=== PATIENT | female | born 2000 | race Caucasian/White ===

== ENCOUNTER 2018-01-04 01:37 | Emergency (ER) | payer MEDICAID ==
[~2018-01-04] VITALS: Ht 165.1 cm; Wt 88.9 kg
[2018-01-04 01:44] VITALS: BP 119/84; Ht 165.1 cm; Wt 88.9 kg
== END 2018-01-04 04:24 | disposition home or self-care (01) ==
LOC: ED 01:37
DX: R10.31 Right lower quadrant pain (principal); B37.3 Candidiasis of vulva and vagina

== ENCOUNTER 2018-08-03 22:06 | Emergency (ER) | payer MEDICAID ==
[~2018-08-03] VITALS: Ht 162.6 cm; Wt 93.9 kg
[2018-08-03 22:20] VITALS: Ht 162.6 cm; Wt 93.9 kg
[2018-08-03 22:52] LABS: UA SPECIFIC GRAVITY >=1.030 (1.005-1.035); microscopic required? YES; urine erythrocyte 1+ (NEGATIVE)
[2018-08-03 22:54] LABS: PLATELET COUNT 383 x10^3mcL (130-400); RED CELL DISTRIBUTION WIDTH 12.5 % (11.5-14.5)
[2018-08-03 23:07] LABS: CARBON DIOXIDE 24.7 mmol/L (21-32); CHLORIDE SERUM 104 mmol/L (98-107); CREATININE SERUM 0.8 mg/dL (0.6-1.0); GFR1 > 60 mL/min; GLUCOSE SERUM 94 mg/dL (74-106); POTASSIUM SERUM 3.8 mmol/L (3.5-5.1); SODIUM SERUM 138 mmol/L (136-145)
[2018-08-03 23:11] LABS: ALBUMIN 3.7 g/dL (3.4-5.0); ALKALINE PHOSPHATASE 61 U/L (46-116); ALT/SGPT 73 U/L (14-59); AMYLASE 63 U/L (25-115); AST/SGOT 37 U/L (15-37); BILIRUBIN TOTAL 0.1 mg/dL (0.20-1.00); LIPASE 127 IU/L (73-393); TOTAL PROTEIN, SERUM 7.8 g/dL (6.4-8.2)
[2018-08-04 00:55] VITALS: BP 116/74
== END 2018-08-04 00:55 | disposition home or self-care (01) ==
LOC: ED 22:06
PROVIDERS: Specialist
DX: O20.0 Threatened abortion (principal); O34.81 Maternal care for other abnormalities of pelvic organs, first trimester; Z3A.08 8 weeks gestation of pregnancy
CPT/HCPCS: J7030

== ENCOUNTER 2019-01-03 21:22 | Emergency (ER) | payer MEDICAID ==
[~2019-01-03] VITALS: Ht 162.6 cm; Wt 97.1 kg
[2019-01-03 21:30] VITALS: Ht 162.6 cm; Wt 97.1 kg
[2019-01-03 22:08] LABS: BASOPHIL % 0.4 % (0-2); PLATELET COUNT 324 x10^3mcL (130-400); RED CELL DISTRIBUTION WIDTH 12.6 % (11.5-14.5)
[2019-01-03 22:14] LABS: CHLORIDE SERUM 103 mmol/L (98-107); CREATININE SERUM 0.5 mg/dL (0.6-1.0); GFR1 > 60 mL/min; GLUCOSE SERUM 107 mg/dL (74-106); POTASSIUM SERUM 3.9 mmol/L (3.5-5.1); SODIUM SERUM 137 mmol/L (136-145)
[2019-01-03 22:19] LABS: ALKALINE PHOSPHATASE 109 U/L (46-116); ALT/SGPT 72 U/L (14-59); AST/SGOT 62 U/L (15-37); BILIRUBIN TOTAL 0.3 mg/dL (0.20-1.00); TOTAL PROTEIN, SERUM 7.4 g/dL (6.4-8.2)
[2019-01-03 22:20] LABS: ALBUMIN 2.9 g/dL (3.4-5.0)
[2019-01-04 01:35] LABS: UA SPECIFIC GRAVITY 1.025 (1.005-1.035); microscopic required? YES
[2019-01-04 01:36] LABS: urine erythrocyte TRACE (NEGATIVE)
[2019-01-04 02:57] VITALS: BP 116/65
== END 2019-01-04 02:57 | disposition home or self-care (01) ==
LOC: ED 21:22
PROVIDERS: Emergency Medicine
DX: O23.43 Unspecified infection of urinary tract in pregnancy, third trimester (principal); O99.513 Diseases of the respiratory system complicating pregnancy, third trimester; R51 Headache; Z3A.29 29 weeks gestation of pregnancy
CPT/HCPCS: 36415; 82962

== ENCOUNTER 2019-07-03 21:34 | Emergency (ER) | payer MEDICAID ==
[2019-07-03 22:05] VITALS: Ht 162.6 cm
[2019-07-03 23:47] LABS: UA SPECIFIC GRAVITY 1.015 (1.005-1.035); microscopic required? YES; urine erythrocyte NEGATIVE (NEGATIVE)
[2019-07-04 01:39] VITALS: BP 108/66
== END 2019-07-04 01:40 | disposition home or self-care (01) ==
LOC: ED 21:34
PROVIDERS: Emergency Medicine
DX: B34.9 Viral infection, unspecified (principal); R19.7 Diarrhea, unspecified
CPT/HCPCS: 87804; J7030

== ENCOUNTER 2020-07-29 04:58 | Emergency (ER) | payer MEDICAID ==
[2020-07-29 05:06] VITALS: Ht 165.1 cm
[2020-07-29 05:56] LABS: UA SPECIFIC GRAVITY 1.025 (1.005-1.035); microscopic required? YES; urine erythrocyte NEGATIVE (NEGATIVE)
[2020-07-29 05:57] LABS: BASOPHIL % 0.5 % (0-2)
[2020-07-29 05:59] LABS: PLATELET COUNT 431 x10^3mcL (130-400); RED CELL DISTRIBUTION WIDTH 19.5 % (11.5-14.5)
[2020-07-29 06:03] LABS: CALCIUM 8.8 mg/dL (8.5-10.1); CARBON DIOXIDE 24.8 mmol/L (21-32); CHLORIDE SERUM 106 mmol/L (98-107); CREATININE SERUM 0.6 mg/dL (0.6-1.0); GFR1 > 60 mL/min; GLUCOSE SERUM 120 mg/dL (74-106); SODIUM SERUM 140 mmol/L (136-145)
[2020-07-29 06:07] LABS: ALBUMIN 3.8 g/dL (3.4-5.0); ALKALINE PHOSPHATASE 87 U/L (46-116); ALT/SGPT 152 U/L (14-59); AST/SGOT 63 U/L (15-37); BILIRUBIN TOTAL 0.16 mg/dL (0.20-1.00); LIPASE 138 IU/L (73-393); TOTAL PROTEIN, SERUM 7.9 g/dL (6.4-8.2)
[2020-07-29 11:05] VITALS: BP 110/70
== END 2020-07-29 11:05 | disposition home or self-care (01) ==
LOC: ED 04:58
PROVIDERS: Emergency Medicine
DX: R10.31 Right lower quadrant pain (principal); R11.2 Nausea with vomiting, unspecified; Z86.2 Personal history of diseases of the blood and blood-forming organs and certain disorders involving the immune mechanism
CPT/HCPCS: J1885; J2405; J8597; Q9967

== ENCOUNTER 2020-10-01 16:23 | Emergency (ER) | payer MEDICAID ==
[~2020-10-01] VITALS: Ht 165.1 cm; Wt 102.1 kg
[2020-10-01 16:43] VITALS: Ht 165.1 cm; Wt 102.1 kg
[2020-10-01] MEDS ORDERED: ULTRAM50 MG PO (17:39)
[2020-10-01] MEDS ORDERED: BACTRIM DS1 TAB PO (17:39)
[2020-10-01] MEDS ORDERED: IBU600 M2 PO (17:39)
[2020-10-01] MEDS ORDERED: CEPHALEXIN500 MG PO (17:39)
[2020-10-01 18:01] VITALS: BP 139/74
== END 2020-10-01 18:01 | disposition home or self-care (01) ==
LOC: ED 16:23
DX: L02.31 Cutaneous abscess of buttock (principal)